=== PATIENT | male | born 1995 | race African-American/Black ===

== ENCOUNTER 2017-08-30 02:27 | Emergency (ER) | payer SELFPAY ==
[~2017-08-30] VITALS: Ht 188 cm; Wt 182.0 kg
[2017-08-30 02:28] VITALS: BP 197/100; PULSE 82; RESP 16; TEMP 98.1; O2SAT 98
[2017-08-30] MEDS ORDERED: SODIUM CHLOR 0.9% 1000 ML INJ 1,000 ML IV ONE (02:52)
[2017-08-30] MEDS ORDERED: SODIUM CHLORIDE 0.9% FLUSH 10 ML FLUSH IVF PRN (03:00)
[2017-08-30] MEDS ORDERED: PROCHLORPERAZINE INJ 10 MG/2 ML VIAL IVP ONE (03:00)
[2017-08-30] MEDS ORDERED: ACETAMINOPHEN 325 MG TAB PO ONE (03:00)
[2017-08-30] MEDS ORDERED: diphenhydrAMINE HCL 50 MG/ML VIAL IVP ONE (03:00)
[2017-08-30] MEDS ORDERED: PROM25TA10 PO (03:26)
--- NOTE | 2017-08-30 03:26 | PD ---
HPI Chief Complaint: Headache Time Seen by Provider: 02:39 Travel History International Travel<30 days: No Contact w/Intl Traveler<30days: No Traveled to known affect area: No History of Present Illness HPI 22 yo M c/o 4 days headache. first noticed while patient was at rest. timing constant. onset gradual. severity 7/10. location bitemporal. quality throbbing. standing up abruptly can worsen pain. + photophobia/phonophobia. no fever. no neck stiffness. pt has not tried otc analgesics at home. PFSH Past Medical History Medical History: Denies Significant Hx Diminished Hearing: No Tetanus Vaccination: Unknown Past Surgical History Surgical History: No Previous Surgery Social History Alcohol Use: No Tobacco Use: No Substance Use: No Allergies-Medications (Allergen,Severity, Reaction): Coded Allergies: No Known Allergies (Unverified , 08/30/17) Reported Meds & Prescriptions Reported Meds & Active Scripts Active Phenergan (Promethazine HCl) 25 Mg Tablet 25 Mg PO Q6H PRN Review of Systems Except as stated in HPI: all other systems reviewed are Neg General / Constitutional: No: Fever Neurologic: Positive: Headache Physical Exam Narrative GENERAL: 22 yo M WNWD NAD SKIN: Warm and dry. HEAD: Atraumatic. Normocephalic. EYES: Pupils equal and round. No scleral icterus. No injection or drainage. ENT: No nasal bleeding or discharge. Mucous membranes pink and moist. NECK: Trachea midline. No JVD. CARDIOVASCULAR: Regular rate and rhythm. RESPIRATORY: No accessory muscle use. Clear to auscultation. Breath sounds equal bilaterally. GASTROINTESTINAL: Abdomen soft, non-tender, nondistended. Hepatic and splenic margins not palpable. MUSCULOSKELETAL: Extremities without clubbing, cyanosis, or edema. No obvious deformities. NEUROLOGICAL: Awake and alert. No obvious cranial nerve deficits. Motor grossly within normal limits. Five out of 5 muscle strength in the arms and legs. Normal speech. PSYCHIATRIC: Appropriate mood and affect; insight and judgment normal. Data Data Last Documented VS Vital Signs Date Time Temp Pulse Resp B/P (MAP) Pulse Ox O2 Delivery O2 Flow Rate FiO2 08/30/17 02:28 98.1 82 16 197/100 (132) 98 Room Air VS reviewed Orders Orders Ecg Monitoring (08/30/17 02:52) Iv Access Insert/Monitor (08/30/17 02:52) Oximetry (08/30/17 02:52) Sodium Chloride 0.9% Flush (Ns Flush) (08/30/17 03:00) Acetaminophen (Tylenol) (08/30/17 03:00) Prochlorperazine Inj (Compazine Inj) (08/30/17 03:00) Diphenhydramine Inj (Benadryl Inj) (08/30/17 03:00) Sodium Chlor 0.9% 1000 Ml Inj (Ns 1000 M (08/30/17 02:52) Ed Discharge Order (08/30/17 03:39) MDM Medical Decision Making Medical Screen Exam Complete: Yes Emergency Medical Condition: Yes Differential Diagnosis migraine, tension headache, cluster headache, normal pressure hydrocephalus Narrative Course Compazine, Benadryl, IVF, Tylenol Pt reports improvement at 350AM Presentation most c/w tension headache Return precautions discussed Diagnosis Primary Impression: Cephalgia Qualified Codes: R51 - Headache Med/Other Pt SpecificInfo: Prescription(s) given Scripts Promethazine (Phenergan) 25 Mg Tablet 25 MG PO Q6H Y for HEADACHE, #20 TAB 0 Refills Prov: Amandeep Cardoza MD 08/30/17 Disposition: 01 DISCHARGE HOME Condition: Stable Amandeep Cardoza MD Aug 30, 2017 03:26
== END 2017-08-30 04:22 | disposition home or self-care (01) ==
LOC: NEPE 02:27
DX: R51 Headache (principal)
CPT/HCPCS: 96361; 96374; 96375; 99284; J0780; J1200; J7030